=== PATIENT | female | born 1945 | race Caucasian/White ===

== ENCOUNTER 2020-08-10 06:52 | Day surgery (SDC) | payer MEDICARE, OTHER ==
[2020-08-10] MEDS ORDERED: Sodium Chloride 0.9(Preservative Free) 10 ML IJ ONE (06:53)
[2020-08-10] MEDS ORDERED: Depo-Medrol 40 MG/ML IM ONE (06:53)
[2020-08-10] MEDS ORDERED: Xylocaine 1% Vial 30 ML PF IJ ONE (06:53)
[2020-08-10] MEDS ORDERED: DIPRIVAN 200 MG/20 ML IV ONE (08:30)
--- NOTE | 2020-08-10 09:10 | XRAY ---
Indication: Caudal APRIL. Intraoperative fluoroscopy provided for 22 seconds. 2 digital spot images submitted for interpretation demonstrates caudal posterior needle tip projecting mid sacrum level. Small amount of contrast injected for needle tip placement. Correlate with intraoperative findings/report.
--- NOTE | 2020-08-10 10:27 | XRAY ---
22 seconds fluoroscopy time in surgery for caudal APRIL.
[2020-08-10] MEDS ORDERED: Lactated Ringers 1,000 ML IV ONE (15:27)
== END 2020-08-10 09:00 | disposition home or self-care (01) ==
LOC: SDC-PAIN 06:52
PROVIDERS: ATTEND Psychiatry & Neurology Pain Medicine
DX: M54.16 Radiculopathy, lumbar region (principal); F41.9 Anxiety disorder, unspecified; F32.9 Major depressive disorder, single episode, unspecified; I25.10 Atherosclerotic heart disease of native coronary artery without angina pectoris; E11.9 Type 2 diabetes mellitus without complications; I10 Essential (primary) hypertension; Z79.899 Other long term (current) drug therapy
CPT/HCPCS: 62323; 72100; 77003; 82947; J1030; J2001; J2704; Q9966

== ENCOUNTER 2020-10-12 08:53 | Day surgery (SDC) | payer MEDICARE, OTHER ==
[2020-10-12] MEDS ORDERED: Xylocaine 1% Vial 30 ML PF IJ ONE (08:54)
[2020-10-12] MEDS ORDERED: Sodium Chloride 0.9(Preservative Free) 10 ML IJ ONE (08:54)
[2020-10-12] MEDS ORDERED: Depo-Medrol 40 MG/ML IM ONE (08:54)
[2020-10-12] MEDS ORDERED: Lactated Ringers 1,000 ML IV ONE (10:02)
[2020-10-12] MEDS ORDERED: DIPRIVAN 200 MG/20 ML IV ONE (10:54)
--- NOTE | 2020-10-12 12:43 | XRAY ---
Indication: Caudal APRIL. Intraoperative fluoroscopy provided for 50 seconds. Single digital spot image demonstrates posterior caudal needle tip projecting mid sacrum. Small amount of contrast injected for needle tip placement. Correlate with intraoperative findings/report.
--- NOTE | 2020-10-12 13:06 | XRAY ---
50 seconds fluoroscopy time in surgery for caudal APRIL.
== END 2020-10-12 11:23 | disposition home or self-care (01) ==
LOC: SDC-PAIN 08:53
PROVIDERS: ATTEND Psychiatry & Neurology Pain Medicine
DX: M54.16 Radiculopathy, lumbar region (principal); E11.9 Type 2 diabetes mellitus without complications; Z79.899 Other long term (current) drug therapy
CPT/HCPCS: 62323; 72020; 77003; 82947; J1030; J2001; J2704; Q9966

== ENCOUNTER 2020-12-07 08:31 | Day surgery (SDC) | payer MEDICARE, OTHER ==
[2020-12-07] MEDS ORDERED: Depo-Medrol 40 MG/ML IM ONE (08:32)
[2020-12-07] MEDS ORDERED: BUPIVACAINE 0.5% VIAL IJ ONE (08:32)
[2020-12-07] MEDS ORDERED: DIPRIVAN 200 MG/20 ML IV ONE (09:30)
--- NOTE | 2020-12-07 10:23 | XRAY ---
Indication: Right hip and ischial bursa injections. Intraoperative fluoroscopy provided for 22 seconds. 2 digital spot image submitted for interpretation demonstrates needle tip projecting lateral to right femur neck. Second needle tip inferior to right ischial tuberosity. Small amount of contrast injected for both needle tip placement. Correlate with intraoperative findings/report.
--- NOTE | 2020-12-07 10:23 | XRAY ---
22 seconds fluoroscopy time in surgery for injections of the left ischial bursa and intra-articular joint space of the right hip.
[2020-12-07] MEDS ORDERED: Lactated Ringers 1,000 ML IV ONE (17:24)
== END 2020-12-07 09:55 | disposition home or self-care (01) ==
LOC: SDC-PAIN 08:31
PROVIDERS: ATTEND Psychiatry & Neurology Pain Medicine
DX: M16.11 Unilateral primary osteoarthritis, right hip (principal); M70.71 Other bursitis of hip, right hip; I25.10 Atherosclerotic heart disease of native coronary artery without angina pectoris; E11.9 Type 2 diabetes mellitus without complications; I10 Essential (primary) hypertension; M81.0 Age-related osteoporosis without current pathological fracture; Z79.899 Other long term (current) drug therapy
CPT/HCPCS: 20610; 73502; 77002; 82947; J1030; J2704; Q9966